=== PATIENT | male | born 1960 | race Two or more races ===

== ENCOUNTER 2016-08-08 05:29 | Day surgery (SDC) | payer OTHER ==
[2016-08-07 15:40] VITALS: Ht 172.7 cm; Wt 68.5 kg
[2016-08-08] VITALS (21 sets, daily range): BP systolic 131–174; BP diastolic 66–81; PULSE 66–94; RESP 14–24
[~2016-08-08] VITALS: Ht 172.7 cm; Wt 68.5 kg
[2016-08-08] MEDS ORDERED: CEFAZOLIN 2 GM/50 ML (PMX) 50 ML IVPB ONE (06:05)
[2016-08-08] MEDS ORDERED: LOSA50TA2 PO (06:49)
[2016-08-08] MEDS ORDERED: LIRA0.6P SQ (06:49)
[2016-08-08] MEDS ORDERED: MTF1000T PO (06:49)
[2016-08-08] MEDS ORDERED: EMPA25TA PO (06:49)
[2016-08-08] MEDS ORDERED: PIOG30TA26 PO (06:49)
[2016-08-08] MEDS ORDERED: MONT10TA24 PO (06:49)
[2016-08-08] MEDS ORDERED: INSU100I12 SQ (06:49)
[2016-08-08] MEDS ORDERED: ATOR10TA65 PO (06:49)
[2016-08-08] MEDS ORDERED: ESMOLOL 100 MG INJ ONE (07:00)
--- NOTE | 2016-08-08 07:22 | HPN ---
Date/Time of Note Date/Time of Note DATE: 08/08/16 TIME: 07:22 Interval H&P Admission Note Pt. seen H&P reviewed: No system changes AMANDA ALAMO MD Aug 08, 2016 07:22
[2016-08-08] MEDS ORDERED: MIDAZOLAM 1 MG/ML 2 ML INJ ONE (07:26)
[2016-08-08] MEDS ORDERED: ROCURONIUM 50 MG INJ ONE (07:26)
[2016-08-08] MEDS ORDERED: PROPOFOL 20 ML ONE (07:26)
[2016-08-08] MEDS ORDERED: FENTAnyl 50 MCG/ML VIAL ONE ×4 (07:26→10:16)
[2016-08-08] MEDS ORDERED: ONDANSETRON 4 MG INJ ONE (08:02)
[2016-08-08] MEDS ORDERED: DEXAMETHASONE 4 MG/ML 1 ML INJ ONE (08:02)
[2016-08-08] MEDS ORDERED: PHENYLephrine (100 MCG/ML) 5ML SYG ONE ×2 (08:05→09:28)
[2016-08-08] MEDS ORDERED: NEOSTIGMINE 3 MG/3 ML SYRINGE ONE (09:45)
[2016-08-08] MEDS ORDERED: GLYCOPYRROLATE 0.4 MG INJ ONE (09:45)
[2016-08-08] MEDS ORDERED: morphine 10 MG INJ ONE (09:56)
[2016-08-08] MEDS ORDERED: MEPERIDINE 25 MG INJ IV PRN (10:00)
[2016-08-08] MEDS ORDERED: HYDROmorphONE (0.2 MG/ML) 10ML SYG IV PRN (10:00)
[2016-08-08] MEDS ORDERED: ONDANSETRON 4 MG INJ IV PRN (10:00)
[2016-08-08] MEDS ORDERED: hydrALAzine 20 MG INJ IV PRN (10:00)
[2016-08-08] MEDS ORDERED: DEXTROSE 5%-0.45% NACL 1,000 ML IV SCH (10:19)
[2016-08-08] MEDS ORDERED: HYDROCODONE/APAP (5/325) TAB PO PRN (10:30)
[2016-08-08] MEDS: HYDROmorphONE (0.2 MG/ML) 10ML SYG IV PRN ×5 (10:41→12:40)
--- NOTE | 2016-08-08 11:08 | OPR ---
DATE OF OPERATION: 08/08/2016 PREOPERATIVE DIAGNOSIS: Large bladder tumor. POSTOPERATIVE DIAGNOSIS: Large bladder tumor. OPERATION PERFORMED: Transurethral resection of bladder tumor. The procedure started at 7:30 and finished at 10:30. SURGEON: Lincoln Deal MD TECHNIQUE: The patient was brought to the operating room. General anesthesia was induced. The patient was positioned in the lithotomy position. Timeout was done. The patient was identified by his name, date, and the procedure. He was given 2 grams of Ancef IV at the start of the procedure. Then, the patient was positioned in the lithotomy position. The genital area was prepped and draped in the usual sterile manner. The #26 [place]ran bipolar machine resectoscope was then introduced under direct vision through the penile urethra all the way to the bladder. Once in the bladder, the tumor was visualized and it was very large. It was on the right lateral bladder wall going also anteriorly up to the 11 o'clock position. It is lateral to the right ureteral orifice. The rest of the bladder appeared to be normal. Then, I started resecting the tumor with the bipolar machine and almost senior care , the bipolar machine stopped working. I tried to see if we could work it out and we did call the rep of the company. We did all the suggested things, it did not. So, I had to convert to the regular old resectoscope. So, I used the 26-Andorran resectoscope and used the regular monopolar resectoscope and completed the resection. At the end of the procedure, I did take deeper cuts and these would be the base of the bladder tumor. All the edges and the base of the tumor were all electrocoagulated very well. There were no bleeders. At the end, the return was water clear and I inspected, the ureteral orifice was away from the resection and there was no bleeding. Therefore, I went ahead and put a 22-Andorran 3-way Bro catheter just in case we need irrigation later on and inflated the balloon with 30 mL of sterile water, connected the catheter to a drainage bag. The patient was transferred to recovery room in stable and satisfactory condition. Dictated By: LINCOLN IVY/JESSICA Conf#: [id number] DID#: [id number] [facility]
== END 2016-08-08 13:22 | disposition home or self-care (01) ==
LOC: SDS 05:29
PROVIDERS: ATTEND Urology
DX: C67.9 Malignant neoplasm of bladder, unspecified (principal); E11.9 Type 2 diabetes mellitus without complications; I10 Essential (primary) hypertension
CPT/HCPCS: 52234; 82962; J0360; J0690; J1100; J1170; J2250; J2270; J2370; J2405; J2710; J3010

== ENCOUNTER 2017-03-04 10:40 | Day surgery (SDC) | payer OTHER ==
[~2017-03-04] VITALS: Ht 172.7 cm; Wt 66.4 kg
[2017-03-04] VITALS (11 sets, daily range): BP systolic 124–148; BP diastolic 68–87; PULSE 80–94; RESP 11–27; Ht 172.7 cm; Wt 66.4 kg
[~2017-03-04 10:40] MED LIST: ATOR10TA65 PO; EMPA25TA PO; INSU100I12 SQ; LIRA0.6P SQ; LOSA50TA2 PO; MONT10TA24 PO; MTF1000T PO; PIOG30TA26 PO
[2017-03-04] MEDS ORDERED: ASPI-664 PO (11:15)
[2017-03-04] MEDS ORDERED: INSU200I SQ (11:16)
[2017-03-04] MEDS ORDERED: METF1000 PO (11:17)
[2017-03-04] MEDS ORDERED: NASO17 NASAL (11:18)
[2017-03-04] MEDS ORDERED: LORA10TA3 PO (11:18)
[2017-03-04] MEDS ORDERED: MIDAZOLAM 1 MG/ML 2 ML INJ ONE (12:26)
[2017-03-04] MEDS ORDERED: ROCURONIUM 50 MG INJ ONE (12:26)
[2017-03-04] MEDS ORDERED: FENTAnyl 50 MCG/ML VIAL ONE (12:26)
[2017-03-04] MEDS ORDERED: PROPOFOL 20 ML ONE (12:26)
--- NOTE | 2017-03-04 12:34 | HPN ---
Date/Time of Note Date/Time of Note DATE: 03/04/17 TIME: 12:34 Interval H&P Admission Note Pt. seen H&P reviewed: No system changes AMANDA ALAMO MD Mar 04, 2017 12:34
[2017-03-04] MEDS ORDERED: DEXAMETHASONE 4 MG/ML 1 ML INJ ONE (12:52)
[2017-03-04] MEDS ORDERED: ONDANSETRON 4 MG INJ ONE (12:52)
[2017-03-04] MEDS ORDERED: METOCLOPRAMIDE 10 MG INJ ONE (12:52)
[2017-03-04] MEDS ORDERED: LABETALOL HCL 20MG INJ ONE (13:13)
[2017-03-04] MEDS ORDERED: SUGAMMADEX SODIUM 200 MG/2 ML VIAL IV ONE (13:27)
[2017-03-04] MEDS ORDERED: hydrALAzine 20 MG INJ ONE (13:28)
[2017-03-04] MEDS ORDERED: ONDANSETRON 4 MG INJ IV PRN (13:30)
[2017-03-04] MEDS ORDERED: FENTAnyl 50 MCG/ML VIAL IV PRN ×3 (13:30)
[2017-03-04] MEDS ORDERED: morphine (1 MG/ML) 10ML SYRINGE IV PRN ×3 (13:30)
[2017-03-04] MEDS ORDERED: DIPHENHYDRAMINE 50 MG INJ IV PRN (13:30)
[2017-03-04] MEDS ORDERED: hydrALAzine 20 MG INJ IV PRN (13:30)
[2017-03-04] MEDS ORDERED: LABETALOL HCL 20MG INJ IV PRN (13:30)
[2017-03-04] MEDS ORDERED: MEPERIDINE 25 MG INJ IV PRN (13:30)
[2017-03-04] MEDS ORDERED: METOCLOPRAMIDE 10 MG INJ IV PRN (13:30)
[2017-03-04] MEDS ORDERED: EPHEDrine SULFATE 50 MG/5 ML SYG IV PRN (13:30)
[2017-03-04] MEDS: HYDROmorphONE (0.2 MG/ML) 10ML SYG IV PRN ×2 (13:40→13:59)
--- NOTE | 2017-03-04 13:46 | OPR ---
Date/Time of Note Date/Time of Note DATE: 03/04/17 TIME: 13:40 Operative Report Procedure Date: Mar 04, 2017 Preoperative Diagnosis History of bladder tumor rule out recurrence Postoperative Diagnosis History of bladder tumor rule out recurrence, pending pathology report Operation/Procedure Performed Cystoscopy bladder biopsies posterior bladder wall, right lateral bladder wall, anterior bladder wall and left lateral bladder wall Surgeon see signature line Box Covering Machine Operator None Anesthesia Type: general Anesthesiologist: MAX MILLER MD Estimated Blood Loss: minimal Transfusion none Specimen Bladder biopsies, anterior bladder wall, right lateral bladder wall, posterior bladder wall, and left lateral bladder wall Grafts/Implants none Complications none Pt Condition Post Procedure: stable Disposition: PACU Indications History of bladder tumors, patient is status post intravesical BCG instillation Procedure Description The patient was brought to the operating room and general anesthesia was induced. Patient was positioned in the lithotomy position. Patient was given 2 g of Ancef IV at the start of the procedure. Timeout was done. The patient was identified by his name birthdate and the procedure. The genital area was then prepped and draped in the usual sterile manner. #22 Bulgarian cystoscope sheath was introduced under direct vision through the penile urethra all the way to the bladder. The bladder was inspected thoroughly with the 30 and 70 lenses. The ureteral orifices were identified. Then using the rigid biopsy forceps biopsy of the posterior bladder wall was done then electrocoagulated was a round tip Bugbee electrode, same procedure was done on the right lateral wall, anterior bladder wall, and left lateral bladder wall. At the end of the procedure all the biopsied areas were inspected and there was no bleeding. The bladder was then emptied and the patient was transferred to the recovery room in a stable and satisfactory condition AMANDA ALAMO MD Mar 04, 2017 13:46
[2017-03-04] MEDS ORDERED: HYDROCODONE/APAP (5/325) TAB PO PRN (14:00)
== END 2017-03-04 15:20 | disposition home or self-care (01) ==
LOC: SDS 10:40
PROVIDERS: ATTEND Urology
DX: D30.3 Benign neoplasm of bladder (principal); N32.89 Other specified disorders of bladder; E78.5 Hyperlipidemia, unspecified; I10 Essential (primary) hypertension; E11.9 Type 2 diabetes mellitus without complications
CPT/HCPCS: 52204; 82962; 87086; J0360; J1100; J1170; J2250; J2405; J2765; J3010